=== PATIENT | female | born 1975 | race Caucasian/White ===

== ENCOUNTER → 2021-04-14 | Outpatient (CLI) | payer BC | END | disposition home or self-care (01) | LOC: SHCH 15:25 | PROVIDERS: ATTEND Internal Medicine Cardiovascular Disease | DX: R00.2 Palpitations (principal) | CPT/HCPCS: 93306 ==

== ENCOUNTER 2023-07-06 05:58 | Day surgery (SDC) | payer BC ==
[2023-07-04 10:01] VITALS: BP 121/66; PULSE 69; RESP 16
[2023-07-04 10:03] LABS: BASOPHILS # (AUTO) 0.02 K/uL (0.00-0.20); BASOPHILS % (AUTO) 0.9 % (0.0-5.0); EOSINOPHILS % (AUTO) 18.3 % (0.0-8.0); HEMATOCRIT 38.7 % (36-48); LYMPHOCYTES # (AUTO) 0.4 K/uL (1.0-4.8); LYMPHOCYTES % (AUTO) 18.3 % (21.0-51.0); MEAN CORPUSCULAR HEMOGLOBIN 31.8 pg (27.0-33.0); MEAN CORPUSCULAR HGB CONC 33.1 g/dL (32.0-36.0); MONOCYTES # (AUTO) 0.3 K/uL (0.1-1.0); MONOCYTES % (AUTO) 13.7 % (3.0-13.0); NEUTROPHILS # (AUTO) 1.1 K/uL (1.8-7.7); NEUTROPHILS % (AUTO) 48.8 % (40.0-77.0); PLATELET COUNT (AUTO) 125 K/uL (130-400); RED BLOOD CELL COUNT(AUTO) 4.03 MIL/uL (4.00-5.50); RED CELL DISTRIBUTION WIDTH 14.7 % (11.0-15.5); WHITE BLOOD COUNT (AUTO) 2.2 K/uL (4.8-10.8)
[2023-07-04 10:12] LABS: INR 1.01 (0.85-1.15); PROTHROMBIN TIME 11.9 SEC (9.6-11.6)
[2023-07-04 10:14] LABS: PARTIAL THROMBOPLASTIN TIME 28.6 SEC (26.3-35.5)
[2023-07-04 10:18] LABS: ALBUMIN 2.8 g/dL (3.5-5.0); BILIRUBIN,TOTAL 1.7 mg/dL (0.2-1.0); CREATININE 0.6 mg/dL (0.5-1.0); POTASSIUM 4.2 mmol/L (3.5-5.1); TOTAL PROTEIN, SERUM 6.4 g/dL (6.0-8.3)
[2023-07-04 11:12] LABS: BASOPHILS % (MANUAL) 1 % (0-2); EOSINOPHILS % (MANUAL) 19 % (1-6); LYMPHOCYTES % (MANUAL) 21 % (22-44); MAN.DIFF COMMENT-IMPRESSION MANUAL DIFFERENTIAL; MONOCYTES % (MANUAL) 6 % (2-9); REACTIVE LYMPHOCYTES 2 % (0-0); SEGMENTED NEUTROPHILS % 51 % (40-70); TOTAL CELLS COUNTED 100
[2023-07-04 11:13] LABS: PLATELET MORPHOLOGY COMMENT SLIGHTLY DECREASED
[~2023-07-06] VITALS: Ht 171.4 cm; Wt 73.8 kg
[2023-07-06] VITALS (19 sets, daily range): BP systolic 91–113; BP diastolic 43–66; PULSE 64–76; RESP 10–17
[~2023-07-06 05:58] MED LIST: [UNRECOGNIZED DRUG - CODE] PO
[2023-07-06] MEDS: 0.9%NACL 1000ML 1,000 ML IV ONE (06:47)
[2023-07-06] MEDS ORDERED: ROCURONIUM BROMIDE 10MG/1ML 5ML VL ONE ×2 (07:02→09:35)
[2023-07-06] MEDS ORDERED: GLYCOPYRROLATE 0.2 MG/ML 5 ML VIAL ONE (07:02)
[2023-07-06] MEDS ORDERED: FENTANYL CITRATE PF 50 MCG/1 ML 2ML VIAL ONE (07:02)
[2023-07-06] MEDS ORDERED: LIDOCAINE PF 100MG/5ML (2%) SYRINGE 5ML ONE (07:02)
[2023-07-06] MEDS ORDERED: PHENYLEPHRINE HCL 10 MG/ML 1ML VIAL IV ONE (07:03)
[2023-07-06] MEDS ORDERED: PROPOFOL 10 MG/ML 20ML VIAL IV ONE (07:03)
[2023-07-06] MEDS ORDERED: MIDAZOLAM HCL 1 MG/ML 2ML VIAL ONE (07:03)
[2023-07-06] MEDS ORDERED: ONDANSETRON 4MG INJ ONE (07:04)
[2023-07-06] MEDS ORDERED: DEXAMETHASONE SOD PHOSPHATE 10MG/ML 1ML VIAL ONE (07:04)
[2023-07-06] MEDS ORDERED: NICARDIPINE 25MG INJ IV ONE (07:04)
[2023-07-06] MEDS ORDERED: LIDOCAINE HCL 400MG/20ML VIAL ONE (07:44)
[2023-07-06] MEDS ORDERED: HEPARIN 10,000 UNIT/10ML (1,000 UNIT/ML) VIAL ONE (07:45)
[2023-07-06] MEDS ORDERED: ISOPROTERENOL HCL 0.2 MG/ML AMP/VIAL/BAG ONE (08:05)
[2023-07-06] MEDS ORDERED: SUGAMMADEX SODIUM 200 MG/2 ML VIAL IV ONE (10:19)
== END 2023-07-06 13:36 | disposition home or self-care (01) ==
LOC: DAH 05:58
PROVIDERS: ATTEND Internal Medicine Cardiovascular Disease
DX: I47.10 Supraventricular tachycardia, unspecified (principal); I85.10 Secondary esophageal varices without bleeding; K74.69 Other cirrhosis of liver; K74.5 Biliary cirrhosis, unspecified; R00.2 Palpitations; R07.89 Other chest pain; Z82.49 Family history of ischemic heart disease and other diseases of the circulatory system; Z82.5 Family history of asthma and other chronic lower respiratory diseases; Z83.42 Family history of familial hypercholesterolemia; Z86.16 Personal history of COVID-19; Z98.890 Other specified postprocedural states
CPT/HCPCS: 80053; 84703; 85025; 85610; 85730; 36415; 93005; 93653; 93623; C1894 ×5; C1732 ×2; C1730 ×3; A4649 ×2; J3010; J3490 ×6; J1100; J7030; J2001; J1644 ×2; J2250; J2704; J2405; J2371; A4215; A4222; A4221; A4663; A4216; A4606; A4223 ×3